=== PATIENT | male | born 2000 | race Two or more races ===

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

== ENCOUNTER → 2019-01-13 | Outpatient (CLI) | payer OTHER ==
[~2019-01-13] MED LIST: HYDR-3165 PO; MUPI15CR TP
--- NOTE | 2019-01-13 17:00 | RAD ---
Ultrasound of the neck without comparison for 4 months of neck lumps. TECHNIQUE: Real-time grayscale and color Doppler evaluation of the neck is performed on both the left and the right. FINDINGS: There are several bilateral enlarged heterogeneous pathologic-appearing lymph nodes demonstrating internal color flow. No extra frederick soft tissues are noted. The largest and most conspicuous lymph node is seen on the left anteriorly measuring 2.0 x 1.8 x 2.4 cm. This lymph node is amenable to percutaneous biopsy. IMPRESSION: 1. Multiple abnormal bilateral anterior cervical lymph nodes highly suspicious for malignancy. Lymphoma is a primary consideration in this young patient. The dominant nodule in the left is amenable to percutaneous biopsy if clinically warranted. Findings were discussed with TALHA Jimenes at Dr. Hemanth Guerrero's office immediately upon iterpretation of the examination at [id number]. Electronically signed by: Rodri Rush MD (01/13/2019 4:57 PM) [facility]
== END | disposition home or self-care (01) ==
LOC: US 09:44
PROVIDERS: ATTEND Family Medicine
DX: R22.1 Localized swelling, mass and lump, neck (principal)
CPT/HCPCS: 76536